=== PATIENT | male | born 1965 | race Caucasian/White ===

== ENCOUNTER 2019-06-13 07:35 | Outpatient (CLI) | payer MEDICAID, MEDICARE ==
--- NOTE | 2019-06-13 10:36 | ULT ---
ULTRASOUND ABDOMEN: Date: 06/13/19 HISTORY: Hepatitis C. FINDINGS: The liver demonstrates homogeneous echotexture without focal mass or intrahepatic ductal dilatation. No gallstones, gallbladder wall thickening, or pericholecystic fluid seen. The common duct measures 3 mm in diameter. The pancreas and kidneys are normal. The patient is post splenectomy. No free fluid is seen. The visualized portions of the IVC and aorta are unremarkable. IMPRESSION: Status post splenectomy. Otherwise unremarkable exam. POS: OFF
== END 2019-06-13 07:36 | disposition home or self-care (01) ==
LOC: NAV ULT 07:35
PROVIDERS: ATTEND Internal Medicine Gastroenterology
DX: B18.2 Chronic viral hepatitis C (principal); Z90.81 Acquired absence of spleen
CPT/HCPCS: 76700